=== PATIENT | male | born 1945 | race African-American/Black ===

== ENCOUNTER 2022-05-26 09:14 | Observation (INO) ==
[2022-05-26 12:18] LABS: BASOPHILS % (AUTO) 0.1 % (0.2-1.0); EOSINOPHILS % (AUTO) 0.3 % (0.9-2.9); HEMATOCRIT 29.9 % (42.0-54.0); HEMOGLOBIN 9.6 g/dL (13.5-18.0); LYMPHOCYTES # (AUTO) 1.4 X10^3/uL (1.3-2.9); LYMPHOCYTES % (AUTO) 9.3 % (21.0-51.0); MEAN CORPUSCULAR HEMOGLOBIN 27.6 pg (27.0-34.0); MEAN CORPUSCULAR VOLUME 86.2 fL (80.0-100.0); MEAN PLATELET VOLUME 7.4 fL (7.4-11.0); MONOCYTES # (AUTO) 1.2 x10^3/uL (0.3-0.8); MONOCYTES % (AUTO) 8.3 % (0.0-13.0); NEUTROPHILS # (AUTO) 12.3 x10^3/uL (2.2-4.8); RED BLOOD COUNT 3.47 X10^6/uL (4.7-6.0)
[2022-05-26 12:35] LABS: ALBUMIN 2.7 g/dL (3.4-5.0); CALCIUM 9.8 mg/dL (8.5-10.1); COR CA(FOR HYPOALB) 10.8 mg/dL (8.5-10.1); CREATININE 2.05 mg/dL (0.70-1.30); MAGNESIUM 1.3 mg/dL (2.0-2.9); TOTAL PROTEIN 7.8 g/dL (6.4-8.2)
[2022-05-26] MEDS ORDERED: NS 1/2 1,000 ML IV 1,000 ML IV ONE (13:13)
[2022-05-26] MEDS: NS 1/2 1,000 ML IV 1,000 ML IV SCH (13:20)
[2022-05-26] MEDS: MAGNESIUM SULFATE 1 GRAM/100 mL PREMIX 1 G/100 ML BAG IV PRN ×4 (13:21→17:27)
[2022-05-26 14:21] VITALS: BMI 21.4
--- NOTE | 2022-05-26 16:39 | DR.H&P ---
H&P History & Physical for Day of: H&P Date: 05/26/22 Chief Complaint Chief Complaint: poor oral intake, weakness Allergies Allergies Allergy/AdvReac Type Severity Reaction Status Date / Time No Known Drug Allergies Allergy Unknown Verified 09/15/21 15:19 No Known Allergies Allergy Verified 02/25/22 10:50 History of Present Illness History of Present Illness: Mr Flores is a 77y/o male presented to the office due to poor oral intake and weakness. Patient has not been eating much for weeks as per sister. He reports having no appetite. Sister is not sure if the patient is even taking his medicines as he is suppose to. He was told to drink Ensure last visit but has not been drinking as much. He also does not drink much water or fluids. Denies N/V/D or abdominal pain. Denies fever or chills, no chest pain or SOB. He has been taking Mirtazapine daily. He has lost almost 10 lbs since the last visit 3 weeks ago. He was directly admitted for further evaluation and management. Plan: order labs cbc, cmp, UA, mag, anemia panel, order CXR. Resume home medic ations. Start gentle hydration. Replace electrolytes prn. Cardiac diet, PT/OT as tolerated. Monitor AM labs/imaging. Past Surgical History Surgical History: Angioplasty/Stents Family History Family Medical History: Diabetes Mellitus Social History Does patient currently use any type of tobacco product: Yes Have you used tobacco products in the last 12 months: Yes Type of Tobacco Use: Cigarettes Does any household member use tobacco: No Alcohol Use: None Drug Use: None Medications Home Medications: No Known Drug Allergies Allergy (Unknown, Verified 09/15/21 15:19) No Known Allergies Allergy (Verified 02/25/22 10:50) CONTINUE taking the following medications mirtazapine 7.5 mg tablet 7.5 mg PO QPM 05/26/22 [History] Labs Result Diagrams: 05/26/22 12:06 05/26/22 12:06 Labs: Laboratory WBC 15.0 X10^3/uL (3.6-10.0) H 05/26/22 12:06 RBC 3.47 X10^6/uL (4.7-6.0) L 05/26/22 12:06 Hgb 9.6 g/dL (13.5-18.0) L 05/26/22 12:06 Hct 29.9 % (42.0-54.0) L 05/26/22 12:06 MCV 86.2 fL (80.0-100.0) 05/26/22 12:06 MCH 27.6 pg (27.0-34.0) 05/26/22 12:06 MCHC 32.0 g/dL (33.0-35.0) L 05/26/22 12:06 RDW 17.0 % (11.6-16.5) H 05/26/22 12:06 Plt Count 258 X10^3/uL (150.0-450.0) 05/26/22 12:06 MPV 7.4 fL (7.4-11.0) 05/26/22 12:06 Neut % (Auto) 82.0 % (42.0-75.0) H 05/26/22 12:06 Lymph % (Auto) 9.3 % (21.0-51.0) L 05/26/22 12:06 [place] % (Auto) 8.3 % (0.0-13.0) 05/26/22 12:06 Eos % (Auto) 0.3 % (0.9-2.9) L 05/26/22 12:06 Baso % (Auto) 0.1 % (0.2-1.0) L 05/26/22 12:06 Neut # (Auto) 12.3 x10^3/uL (2.2-4.8) H 05/26/22 12:06 Lymph # (Auto) 1.4 X10^3/uL (1.3-2.9) 05/26/22 12:06 [place] # (Auto) 1.2 x10^3/uL (0.3-0.8) H 05/26/22 12:06 Eos # (Auto) 0.0 x10^3/uL (0.0-0.2) 05/26/22 12:06 Baso # (Auto) 0.0 X10^3/uL (0.0-0.1) 05/26/22 12:06 Absolute Nucleated RBC 0.0 /100WBC 05/26/22 12:06 Sodium 140 mmol/L (136-145) 05/26/22 12:06 Corrected Sodium 147 mmol/L (136-145) H 05/26/22 12:06 Potassium 3.7 mmol/L (3.5-5.1) 05/26/22 12:06 Chloride 100 mmol/L (98-107) 05/26/22 12:06 Carbon Dioxide 31.0 mmol/L (21-32) 05/26/22 12:06 BUN 33 mg/dL (7-18) H 05/26/22 12:06 Creatinine 2.05 mg/dL (0.70-1.30) H 05/26/22 12:06 Est GFR (MDRD) Af Amer 40 (>60) L 05/26/22 12:06 Est GFR (MDRD) Non-Af 33 (>60) L 05/26/22 12:06 Glucose 374 mg/dL (65-99) H 05/26/22 12:06 Calcium 9.8 mg/dL (8.5-10.1) 05/26/22 12:06 Corrected Calcium 10.8 mg/dL (8.5-10.1) H 05/26/22 12:06 Magnesium 1.3 mg/dL (2.0-2.9) L 05/26/22 12:06 Ferritin 346 ng/mL (26-388) 05/26/22 12:06 Total Bilirubin 0.30 mg/dL (0.2-1.0) 05/26/22 12:06 AST 33 Units/L (15-37) 05/26/22 12:06 ALT 25 Units/L (12-78) 05/26/22 12:06 Alkaline Phosphatase 78 Units/L (46-116) 05/26/22 12:06 Total Protein 7.8 g/dL (6.4-8.2) 05/26/22 12:06 Albumin 2.7 g/dL (3.4-5.0) L 05/26/22 12:06 Globulin 5.1 g/dL (2.5-4.5) H 05/26/22 12:06 Albumin/Globulin Ratio 0.5 Ratio (1.1-2.1) L 05/26/22 12:06 Vitamin B12 436 pg/mL (193-986) 05/26/22 12:06 Review of Systems Constitutional: Weakness ENT: No Symptoms Reported Respiratory: No Symptoms Reported Cardiovascular: No Symptoms Reported Gastrointestinal: No Symptoms Reported Musculoskeletal: No Symptoms Reported Skin: No Symptoms Reported Neurological: No Symptoms Reported Physical Exam Vital Signs: Temperature 97.4 F Pulse Rate [Left Brachial] 63 Respiratory Rate 18 Blood Pressure [Right Arm] 133/59 Blood Pressure [Left Arm] 116/56 Blood Pressure 124/67 O2 Sat by Pulse Oximetry 99 Oriented: Normal Ear: Normal Respiratory: Clear Throughout Cardiovascular: Normal Auscultation: Bowel Sounds: Normal Palpation: Normal Tenderness: Normal Skin: Decreased [place] Musculoskeletal: Normal Psychiatric: Normal Mood Description: Calm and Flat Affect: Flat Speech Pattern: Clear, Appropriate and Delayed Assessment/Plan (1) Generalized weakness: Status: Acute (2) Dehydration: Status: Acute (3) Decreased oral intake: Status: Acute (4) Coronary artery disease: Status: None (5) Stage 1 chronic kidney disease: Status: None (6) Diabetes mellitus: Status: None
[2022-05-26] MEDS: HumaLOG SC PRN ×2 (16:43→21:46)
[2022-05-26] MEDS: PERIACTIN TAB 4 MG PO SCH ×2 (16:48→21:11)
[2022-05-26] MEDS: COREG TAB 6.25 MG PO SCH (21:11)
[2022-05-26] MEDS: XARELTO PO SCH (21:11)
[2022-05-26] MEDS: ARICEPT TAB 10 MG PO SCH (21:11)
[2022-05-27] MEDS: NS 1/2 1,000 ML IV 1,000 ML IV SCH ×3 (04:05→16:50)
[2022-05-27] MEDS ORDERED: NS 1/2 1,000 ML IV 1,000 ML IV ONE ×2 (04:43→16:55)
[2022-05-27] MEDS: PERIACTIN TAB 4 MG PO SCH ×3 (05:20→21:20)
[2022-05-27] MEDS: HumaLOG SC PRN ×4 (05:36→21:26)
[2022-05-27 05:47] LABS: BASOPHILS % (AUTO) 0.3 % (0.2-1.0); EOSINOPHILS # (AUTO) 0.2 x10^3/uL (0.0-0.2); EOSINOPHILS % (AUTO) 1.5 % (0.9-2.9); HEMATOCRIT 26.1 % (42.0-54.0); HEMOGLOBIN 8.5 g/dL (13.5-18.0); LYMPHOCYTES # (AUTO) 1.5 X10^3/uL (1.3-2.9); LYMPHOCYTES % (AUTO) 12.7 % (21.0-51.0); MEAN CORPUSCULAR HEMOGLOBIN 27.5 pg (27.0-34.0); MEAN CORPUSCULAR HGB CONC 32.6 g/dL (33.0-35.0); MEAN CORPUSCULAR VOLUME 84.3 fL (80.0-100.0); MONOCYTES # (AUTO) 1.2 x10^3/uL (0.3-0.8); MONOCYTES % (AUTO) 9.8 % (0.0-13.0); NEUTROPHILS # (AUTO) 8.9 x10^3/uL (2.2-4.8); NEUTROPHILS % (AUTO) 75.7 % (42.0-75.0); RED CELL DISTRIBUTION WIDTH 16.6 % (11.6-16.5); WHITE BLOOD COUNT 11.7 X10^3/uL (3.6-10.0)
[2022-05-27 05:58] LABS: ALBUMIN 2.3 g/dL (3.4-5.0); CARBON DIOXIDE 29.4 mmol/L (21-32); COR CA(FOR HYPOALB) 10.4 mg/dL (8.5-10.1); CREATININE 1.53 mg/dL (0.70-1.30); MAGNESIUM 2.2 mg/dL (2.0-2.9); TOTAL PROTEIN 6.6 g/dL (6.4-8.2)
--- NOTE | 2022-05-27 07:12 | RAD ---
HISTORYElevated WBCSTUDYAP chestCOMPARISONDecember 2021FINDINGSHeart size remains normal with sternal wires and pacemaker. There is no acute consolidation, pulmonary edema or pleural fluid identified.IMPRESSIONNo interval change or acute abnormality identified.Electronically signed by: ZEESHAN ESPINO (May 27, 2022 07:11:24)
[2022-05-27] MEDS ORDERED: GLUCOPHAGE ONE ×2 (08:46→20:17)
[2022-05-27] MEDS: COREG TAB 6.25 MG PO SCH ×2 (08:49→21:19)
[2022-05-27] MEDS: XARELTO PO SCH ×2 (08:49→21:19)
[2022-05-27] MEDS: GLUCOPHAGE PO SCH ×2 (08:49→21:19)
[2022-05-27 09:09] LABS: BILIRUBIN,URINE NEGATIVE (NEGATIVE); BLOOD/HEMOGLOBIN,URINE 1+ (NEGATIVE); GLUCOSE, URINE NEGATIVE (NEGATIVE); KETONES,URINE NEGATIVE (NEGATIVE); LEUKOCYTE ESTERASE ,URINE NEGATIVE (NEGATIVE); NITRITES,URINE NEGATIVE (NEGATIVE); PROTEIN,URINE 3+ (NEGATIVE); UROBILINOGEN,URINE NORMAL (NORMAL)
[2022-05-27 09:25] LABS: APPEARANCE,URINE CLEAR (CLEAR); COLOR,URINE PALE YELLOW (YELLOW)
[2022-05-27 09:26] LABS: BACTERIA,URINE TRACE /HPF (NEGATIVE); RBC,URINE 0-2 /HPF (0-3); SQUAMOUS EPITHELIAL CELL,UR RARE /HPF (NEGATIVE)
[2022-05-27] MEDS ORDERED: KLOR-CON PO PRN (11:57)
[2022-05-27] MEDS ORDERED: POTASSIUM CHL 60 MEQ/NS 0.45% 500 ML IV PRN (11:57)
[2022-05-27] MEDS ORDERED: POTASSIUM CHL 40 MEQ/NS 0.45% 500 ML IV PRN (11:57)
[2022-05-27] MEDS ORDERED: K-RIDER 10 MEQ/NS 100 ML 10 MEQ/100 ML BAG IV PRN (11:57)
[2022-05-27] MEDS ORDERED: POTASSIUM CHLORIDE LIQ 20 MEQ UDC PO PRN (11:57)
[2022-05-27] MEDS ORDERED: MICRO K EXTEN CAP 10 MEQ PO PRN (11:57)
[2022-05-27] MEDS: K-DUR TAB 20 MEQ PO PRN ×2 (12:29→16:50)
[2022-05-27] MEDS ORDERED: K-DUR TAB 20 MEQ PO ONE (12:31)
[2022-05-27] MEDS: COZAAR PO SCH (17:08)
[2022-05-27] MEDS: ARICEPT TAB 10 MG PO SCH (21:19)
[2022-05-28] MEDS: NS 1/2 1,000 ML IV 1,000 ML IV SCH ×3 (04:01→16:02)
[2022-05-28] MEDS: PERIACTIN TAB 4 MG PO SCH ×3 (05:01→21:07)
[2022-05-28] MEDS: HumaLOG SC PRN ×3 (05:44→21:00)
[2022-05-28 05:56] LABS: BASOPHILS # (AUTO) 0.1 X10^3/uL (0.0-0.1); BASOPHILS % (AUTO) 0.6 % (0.2-1.0); EOSINOPHILS # (AUTO) 0.1 x10^3/uL (0.0-0.2); EOSINOPHILS % (AUTO) 1.2 % (0.9-2.9); HEMATOCRIT 25.9 % (42.0-54.0); HEMOGLOBIN 8.5 g/dL (13.5-18.0); LYMPHOCYTES # (AUTO) 1.7 X10^3/uL (1.3-2.9); LYMPHOCYTES % (AUTO) 16.6 % (21.0-51.0); MEAN CORPUSCULAR HGB CONC 32.7 g/dL (33.0-35.0); MEAN CORPUSCULAR VOLUME 85.5 fL (80.0-100.0); MEAN PLATELET VOLUME 8.1 fL (7.4-11.0); MONOCYTES # (AUTO) 0.9 x10^3/uL (0.3-0.8); MONOCYTES % (AUTO) 8.7 % (0.0-13.0); NEUTROPHILS # (AUTO) 7.5 x10^3/uL (2.2-4.8); NEUTROPHILS % (AUTO) 72.9 % (42.0-75.0); RED BLOOD COUNT 3.02 X10^6/uL (4.7-6.0); RED CELL DISTRIBUTION WIDTH 16.4 % (11.6-16.5); WHITE BLOOD COUNT 10.3 X10^3/uL (3.6-10.0)
[2022-05-28 06:02] LABS: BLOOD UREA NITROGEN 22 mg/dL (7-18); CALCIUM 8.7 mg/dL (8.5-10.1); CARBON DIOXIDE 26.2 mmol/L (21-32); CHLORIDE 102 mmol/L (98-107); COR NA(FOR HYPERGLY) 139 mmol/L (136-145); CREATININE 1.44 mg/dL (0.70-1.30); SODIUM 136 mmol/L (136-145); eGFR NON BLACK RACES 50 (>60)
[2022-05-28] MEDS ORDERED: NS 1,000 ML IV 1,000 ML ONE (07:55)
[2022-05-28] MEDS ORDERED: DIPRIVAN VIAL 20 ML ONE (08:07)
--- NOTE | 2022-05-28 08:39 | PCM.PROG ---
Progress Note Progress Note for Day of Date of Exam: 05/27/22 Subjective Subjective: Pt is a 77 year old male admitted for dehydration, generalized weakness, and acute on chronic kidney failure. This morning patient is resting in bed. He reports his appetite has improved. No acute events overnight. Labs: Wbc 11.7, Hgb 8.5, Plt 246, Na 138, K 3.3, Creatinine 1.53, Glucose 183. He is currently receiving IVF 1/2 NS@85 ml/h. Renal function improving and is close to baseline. Pt has had significant weight loss over the past few months and is also anemic. Will consult general surgery for further evaluation. Otherwise, will continue with current treatment plan. Continue to closely monitor and follow up labs. Past Medical Family Social History Allergies: Allergies No Known Drug Allergies Allergy (Unknown, Verified 09/15/21 15:19) Onset Date: 09/15/2021 No Known Allergies Allergy (Verified 02/25/22 10:50) Review of Systems ROS changes noted: see HPI Vital Signs and I&O's Vital Signs: Temperature 98.6 F Pulse Rate [Right Brachial] 63 Pulse Rate [Left Brachial] 66 Respiratory Rate 18 Blood Pressure [Right Arm] 129/57 Blood Pressure [Left Arm] 116/56 Blood Pressure 124/67 O2 Sat by Pulse Oximetry 97 Intake and Output: Intake & Output 05/25/22 05/26/22 05/27/22 05/28/22 23:59 23:59 23:59 23:59 Intake Total 1700 / 1700 2210 / 2210 1300 / 1300 Output Total 1330 / 1330 Balance 1700 / 1700 880 / 880 1300 / 1300 Physical Exam Oriented: Normal Ear: Normal Respiratory: Normal Cardiovascular: Normal Auscultation: Bowel Sounds: Normal Palpation: Normal Tenderness: Normal Skin: Decreased [place] Musculoskeletal: Normal Psychiatric: Normal Mood Description: Calm and Flat Affect: Flat Speech Pattern: Clear and Appropriate Laboratory and Diagnostics Result Diagrams: 05/28/22 05:18 05/28/22 05:18 Labs: Laboratory WBC 10.3 X10^3/uL (3.6-10.0) H 05/28/22 05:18 RBC 3.02 X10^6/uL (4.7-6.0) L 05/28/22 05:18 Hgb 8.5 g/dL (13.5-18.0) L 05/28/22 05:18 Hct 25.9 % (42.0-54.0) L 05/28/22 05:18 MCV 85.5 fL (80.0-100.0) 05/28/22 05:18 MCH 28.0 pg (27.0-34.0) 05/28/22 05:18 MCHC 32.7 g/dL (33.0-35.0) L 05/28/22 05:18 RDW 16.4 % (11.6-16.5) 05/28/22 05:18 Plt Count 243 X10^3/uL (150.0-450.0) 05/28/22 05:18 MPV 8.1 fL (7.4-11.0) 05/28/22 05:18 Neut % (Auto) 72.9 % (42.0-75.0) 05/28/22 05:18 Lymph % (Auto) 16.6 % (21.0-51.0) L 05/28/22 05:18 [place] % (Auto) 8.7 % (0.0-13.0) 05/28/22 05:18 Eos % (Auto) 1.2 % (0.9-2.9) 05/28/22 05:18 Baso % (Auto) 0.6 % (0.2-1.0) 05/28/22 05:18 Neut # (Auto) 7.5 x10^3/uL (2.2-4.8) H 05/28/22 05:18 Lymph # (Auto) 1.7 X10^3/uL (1.3-2.9) 05/28/22 05:18 [place] # (Auto) 0.9 x10^3/uL (0.3-0.8) H 05/28/22 05:18 Eos # (Auto) 0.1 x10^3/uL (0.0-0.2) 05/28/22 05:18 Baso # (Auto) 0.1 X10^3/uL (0.0-0.1) 05/28/22 05:18 Absolute Nucleated RBC 0.0 /100WBC 05/28/22 05:18 Sodium 136 mmol/L (136-145) 05/28/22 05:18 Corrected Sodium 139 mmol/L (136-145) 05/28/22 05:18 Potassium 4.2 mmol/L (3.5-5.1) 05/28/22 05:18 Chloride 102 mmol/L (98-107) 05/28/22 05:18 Carbon Dioxide 26.2 mmol/L (21-32) 05/28/22 05:18 BUN 22 mg/dL (7-18) H 05/28/22 05:18 Creatinine 1.44 mg/dL (0.70-1.30) H 05/28/22 05:18 Est GFR (MDRD) Af Amer > 60 (>60) 05/28/22 05:18 Est GFR (MDRD) Non-Af 50 (>60) L 05/28/22 05:18 Glucose 231 mg/dL (65-99) H 05/28/22 05:18 POC Glucose (mg/dL) 226 mg/dL (65-99) H 05/28/22 05:10 Calcium 8.7 mg/dL (8.5-10.1) 05/28/22 05:18 Corrected Calcium 10.4 mg/dL (8.5-10.1) H 05/27/22 05:12 Magnesium 2.2 mg/dL (2.0-2.9) 05/27/22 05:12 Ferritin 346 ng/mL (26-388) 05/26/22 12:06 Total Bilirubin 0.30 mg/dL (0.2-1.0) 05/27/22 05:12 AST 30 Units/L (15-37) 05/27/22 05:12 ALT 24 Units/L (12-78) 05/27/22 05:12 Alkaline Phosphatase 71 Units/L (46-116) 05/27/22 05:12 Creatine Kinase 45 Units/L (39-308) 05/27/22 10:45 Total Protein 6.6 g/dL (6.4-8.2) 05/27/22 05:12 Albumin 2.3 g/dL (3.4-5.0) L 05/27/22 05:12 Globulin 4.3 g/dL (2.5-4.5) 05/27/22 05:12 Albumin/Globulin Ratio 0.5 Ratio (1.1-2.1) L 05/27/22 05:12 Vitamin B12 436 pg/mL (193-986) 05/26/22 12:06 Specimen Type Clean catch urine 05/27/22 08:50 Urine Color Pale yellow (YELLOW) 05/27/22 08:50 Urine Appearance Clear (CLEAR) 05/27/22 08:50 Urine pH 6.0 (5.0 - 8.0) 05/27/22 08:50 Ur Specific [place] 1.010 (1.000-1.030) 05/27/22 08:50 Urine Protein 3+ (NEGATIVE) 05/27/22 08:50 Urine Glucose (UA) Negative (NEGATIVE) 05/27/22 08:50 Urine Ketones Negative (NEGATIVE) 05/27/22 08:50 Urine Blood 1+ (NEGATIVE) 05/27/22 08:50 Urine Nitrite Negative (NEGATIVE) 05/27/22 08:50 Urine Bilirubin Negative (NEGATIVE) 05/27/22 08:50 Urine Urobilinogen Normal (NORMAL) 05/27/22 08:50 Ur Leukocyte Esterase Negative (NEGATIVE) 05/27/22 08:50 Urine RBC 0-2 /HPF (0-3) 05/27/22 08:50 Urine WBC 0-2 /HPF (0-5) 05/27/22 08:50 Ur Squamous Epith Cells Rare /HPF (NEGATIVE) 05/27/22 08:50 Amorphous Sediment Trace /HPF (NEGATIVE) 05/27/22 08:50 Urine Bacteria Trace /HPF (NEGATIVE) 05/27/22 08:50 Urine Mucus Rare /HPF (NEGATIVE) 05/27/22 08:50 Ur Culture Indicated? No/not indicated 05/27/22 08:50 Plan (1) Generalized weakness: Status: Acute (2) Dehydration: Status: Acute (3) Decreased oral intake: Status: Acute (4) Coronary artery disease: Status: None (5) Stage 1 chronic kidney disease: Status: None (6) Diabetes mellitus: Status: None
--- NOTE | 2022-05-28 09:04 | PCM.PROG ---
Progress Note Progress Note for Day of Date of Exam: 05/28/22 Subjective Subjective: Pt is a 77 year old male admitted for dehydration, generalized weakness, and acute on chronic kidney failure. This morning patient is in bed. He has EGD scheduled for this morning. No acute events overnight. Labs: Wbc 10.3, Hgb 8.5, Plt 243, Na 136, K 4.2, Creatinine 1.44, Glucose 231. He is currently receiving IVF 1/2 NS@85 ml/h. Renal function improving and is close to baseline. General surgery consulted and plan for EGD this morning. Otherwise, will continue with current treatment plan. Continue to closely monitor and follow up labs and post procedure recommendations. Past Medical Family Social History Allergies: Allergies No Known Drug Allergies Allergy (Unknown, Verified 09/15/21 15:19) Onset Date: 09/15/2021 No Known Allergies Allergy (Verified 02/25/22 10:50) Review of Systems ROS changes noted: see HPI Vital Signs and I&O's Vital Signs: Temperature 98.2 F Pulse Rate [Right Brachial] 62 Pulse Rate [Left Brachial] 66 Respiratory Rate 20 Blood Pressure [Right Arm] 129/56 Blood Pressure [Left Arm] 116/56 Blood Pressure 124/67 O2 Sat by Pulse Oximetry 98 Intake and Output: Intake & Output 05/25/22 05/26/22 05/27/22 05/28/22 23:59 23:59 23:59 23:59 Intake Total 1700 / 1700 2210 / 2210 1300 / 1300 Output Total 1330 / 1330 Balance 1700 / 1700 880 / 880 1300 / 1300 Physical Exam Oriented: Normal Ear: Normal Respiratory: Normal Cardiovascular: Normal Auscultation: Bowel Sounds: Normal Tenderness: Normal Skin: Decreased [place] Musculoskeletal: Normal Psychiatric: Normal Mood Description: Calm and Flat Affect: Flat Speech Pattern: Clear and Appropriate Laboratory and Diagnostics Result Diagrams: 05/28/22 05:18 05/28/22 05:18 Labs: Laboratory WBC 10.3 X10^3/uL (3.6-10.0) H 05/28/22 05:18 RBC 3.02 X10^6/uL (4.7-6.0) L 05/28/22 05:18 Hgb 8.5 g/dL (13.5-18.0) L 05/28/22 05:18 Hct 25.9 % (42.0-54.0) L 05/28/22 05:18 MCV 85.5 fL (80.0-100.0) 05/28/22 05:18 MCH 28.0 pg (27.0-34.0) 05/28/22 05:18 MCHC 32.7 g/dL (33.0-35.0) L 05/28/22 05:18 RDW 16.4 % (11.6-16.5) 05/28/22 05:18 Plt Count 243 X10^3/uL (150.0-450.0) 05/28/22 05:18 MPV 8.1 fL (7.4-11.0) 05/28/22 05:18 Neut % (Auto) 72.9 % (42.0-75.0) 05/28/22 05:18 Lymph % (Auto) 16.6 % (21.0-51.0) L 05/28/22 05:18 [place] % (Auto) 8.7 % (0.0-13.0) 05/28/22 05:18 Eos % (Auto) 1.2 % (0.9-2.9) 05/28/22 05:18 Baso % (Auto) 0.6 % (0.2-1.0) 05/28/22 05:18 Neut # (Auto) 7.5 x10^3/uL (2.2-4.8) H 05/28/22 05:18 Lymph # (Auto) 1.7 X10^3/uL (1.3-2.9) 05/28/22 05:18 [place] # (Auto) 0.9 x10^3/uL (0.3-0.8) H 05/28/22 05:18 Eos # (Auto) 0.1 x10^3/uL (0.0-0.2) 05/28/22 05:18 Baso # (Auto) 0.1 X10^3/uL (0.0-0.1) 05/28/22 05:18 Absolute Nucleated RBC 0.0 /100WBC 05/28/22 05:18 Sodium 136 mmol/L (136-145) 05/28/22 05:18 Corrected Sodium 139 mmol/L (136-145) 05/28/22 05:18 Potassium 4.2 mmol/L (3.5-5.1) 05/28/22 05:18 Chloride 102 mmol/L (98-107) 05/28/22 05:18 Carbon Dioxide 26.2 mmol/L (21-32) 05/28/22 05:18 BUN 22 mg/dL (7-18) H 05/28/22 05:18 Creatinine 1.44 mg/dL (0.70-1.30) H 05/28/22 05:18 Est GFR (MDRD) Af Amer > 60 (>60) 05/28/22 05:18 Est GFR (MDRD) Non-Af 50 (>60) L 05/28/22 05:18 Glucose 231 mg/dL (65-99) H 05/28/22 05:18 POC Glucose (mg/dL) 226 mg/dL (65-99) H 05/28/22 05:10 Calcium 8.7 mg/dL (8.5-10.1) 05/28/22 05:18 Corrected Calcium 10.4 mg/dL (8.5-10.1) H 05/27/22 05:12 Magnesium 2.2 mg/dL (2.0-2.9) 05/27/22 05:12 Ferritin 346 ng/mL (26-388) 05/26/22 12:06 Total Bilirubin 0.30 mg/dL (0.2-1.0) 05/27/22 05:12 AST 30 Units/L (15-37) 05/27/22 05:12 ALT 24 Units/L (12-78) 05/27/22 05:12 Alkaline Phosphatase 71 Units/L (46-116) 05/27/22 05:12 Creatine Kinase 45 Units/L (39-308) 05/27/22 10:45 Total Protein 6.6 g/dL (6.4-8.2) 05/27/22 05:12 Albumin 2.3 g/dL (3.4-5.0) L 05/27/22 05:12 Globulin 4.3 g/dL (2.5-4.5) 05/27/22 05:12 Albumin/Globulin Ratio 0.5 Ratio (1.1-2.1) L 05/27/22 05:12 Vitamin B12 436 pg/mL (193-986) 05/26/22 12:06 Specimen Type Clean catch urine 05/27/22 08:50 Urine Color Pale yellow (YELLOW) 05/27/22 08:50 Urine Appearance Clear (CLEAR) 05/27/22 08:50 Urine pH 6.0 (5.0 - 8.0) 05/27/22 08:50 Ur Specific [place] 1.010 (1.000-1.030) 05/27/22 08:50 Urine Protein 3+ (NEGATIVE) 05/27/22 08:50 Urine Glucose (UA) Negative (NEGATIVE) 05/27/22 08:50 Urine Ketones Negative (NEGATIVE) 05/27/22 08:50 Urine Blood 1+ (NEGATIVE) 05/27/22 08:50 Urine Nitrite Negative (NEGATIVE) 05/27/22 08:50 Urine Bilirubin Negative (NEGATIVE) 05/27/22 08:50 Urine Urobilinogen Normal (NORMAL) 05/27/22 08:50 Ur Leukocyte Esterase Negative (NEGATIVE) 05/27/22 08:50 Urine RBC 0-2 /HPF (0-3) 05/27/22 08:50 Urine WBC 0-2 /HPF (0-5) 05/27/22 08:50 Ur Squamous Epith Cells Rare /HPF (NEGATIVE) 05/27/22 08:50 Amorphous Sediment Trace /HPF (NEGATIVE) 05/27/22 08:50 Urine Bacteria Trace /HPF (NEGATIVE) 05/27/22 08:50 Urine Mucus Rare /HPF (NEGATIVE) 05/27/22 08:50 Ur Culture Indicated? No/not indicated 05/27/22 08:50 Plan (1) Generalized weakness: Status: Acute (2) Dehydration: Status: Acute (3) Decreased oral intake: Status: Acute (4) Coronary artery disease: Status: None (5) Stage 1 chronic kidney disease: Status: None (6) Diabetes mellitus: Status: None
[2022-05-28] MEDS ORDERED: GLUCOPHAGE ONE ×2 (09:24→19:26)
[2022-05-28] MEDS: COZAAR PO SCH (09:39)
[2022-05-28] MEDS: COREG TAB 6.25 MG PO SCH ×2 (09:39→20:58)
[2022-05-28] MEDS: XARELTO PO SCH ×2 (09:39→20:58)
[2022-05-28] MEDS: GLUCOPHAGE PO SCH ×2 (09:39→20:59)
[2022-05-28] MEDS ORDERED: NS 1/2 1,000 ML IV 1,000 ML IV ONE ×2 (09:40→23:37)
[2022-05-28] MEDS: PROTONIX INJ 40 MG VIAL IVP SCH (13:43)
[2022-05-28] MEDS: ARICEPT TAB 10 MG PO SCH (20:58)
[2022-05-29] MEDS: NS 1/2 1,000 ML IV 1,000 ML IV SCH ×2 (00:55→05:08)
[2022-05-29 04:54] LABS: BASOPHILS # (AUTO) 0.1 X10^3/uL (0.0-0.1); BASOPHILS % (AUTO) 0.6 % (0.2-1.0); EOSINOPHILS # (AUTO) 0.2 x10^3/uL (0.0-0.2); EOSINOPHILS % (AUTO) 1.6 % (0.9-2.9); HEMATOCRIT 25.1 % (42.0-54.0); HEMOGLOBIN 8.3 g/dL (13.5-18.0); LYMPHOCYTES # (AUTO) 1.5 X10^3/uL (1.3-2.9); LYMPHOCYTES % (AUTO) 13.2 % (21.0-51.0); MEAN CORPUSCULAR HEMOGLOBIN 28.4 pg (27.0-34.0); MEAN CORPUSCULAR HGB CONC 33.1 g/dL (33.0-35.0); MEAN CORPUSCULAR VOLUME 85.8 fL (80.0-100.0); MEAN PLATELET VOLUME 8.1 fL (7.4-11.0); MONOCYTES % (AUTO) 8.6 % (0.0-13.0); NEUTROPHILS # (AUTO) 8.7 x10^3/uL (2.2-4.8); RED BLOOD COUNT 2.93 X10^6/uL (4.7-6.0); RED CELL DISTRIBUTION WIDTH 16.8 % (11.6-16.5); WHITE BLOOD COUNT 11.5 X10^3/uL (3.6-10.0)
[2022-05-29 04:59] LABS: BLOOD UREA NITROGEN 20 mg/dL (7-18); CALCIUM 8.7 mg/dL (8.5-10.1); CHLORIDE 105 mmol/L (98-107); COR NA(FOR HYPERGLY) 142 mmol/L (136-145); CREATININE 1.37 mg/dL (0.70-1.30); SODIUM 139 mmol/L (136-145); eGFR NON BLACK RACES 53 (>60)
[2022-05-29] MEDS: PERIACTIN TAB 4 MG PO SCH (05:08)
[2022-05-29] MEDS: MAGNESIUM SULFATE 1 GRAM/100 mL PREMIX 1 G/100 ML BAG IV PRN (07:00)
[2022-05-29] MEDS ORDERED: GLUCOPHAGE ONE (08:55)
[2022-05-29] MEDS: GLUCOPHAGE PO SCH (09:10)
[2022-05-29] MEDS: PROTONIX INJ 40 MG VIAL IVP SCH (09:10)
[2022-05-29] MEDS: COREG TAB 6.25 MG PO SCH (09:11)
[2022-05-29] MEDS: XARELTO PO SCH (09:11)
[2022-05-29 12:13] VITALS: BP 129/80
== END 2022-05-29 12:20 | disposition home or self-care (01) ==
LOC: MED/SURG
PROVIDERS: ADMIT Internal Medicine; ATTEND Internal Medicine
DX: R53.1 Weakness; N18.1 Chronic kidney disease, stage 1; K22.89 Other specified disease of esophagus; R26.89 Other abnormalities of gait and mobility; K31.84 Gastroparesis; K29.60 Other gastritis without bleeding; D64.89 Other specified anemias; E86.0 Dehydration; I25.10 Atherosclerotic heart disease of native coronary artery without angina pectoris; R63.4 Abnormal weight loss; R62.7 Adult failure to thrive; E11.65 Type 2 diabetes mellitus with hyperglycemia; N17.8 Other acute kidney failure